=== PATIENT | male | born 1975 | race African-American/Black ===

== ENCOUNTER 2020-03-16 07:42 | Emergency (ER) | payer MEDICAID ==
[~2020-03-16] VITALS: Ht 182.9 cm; Wt 64.0 kg
[2020-03-16 07:45] VITALS: BP 124/70
[2020-03-16] MEDS ORDERED: IBUP-2028 MT (08:47)
== END 2020-03-16 08:52 | disposition home or self-care (01) ==
LOC: ER 07:42
DX: M79.672 Pain in left foot (principal); M79.675 Pain in left toe(s); R03.0 Elevated blood-pressure reading, without diagnosis of hypertension
CPT/HCPCS: 73620; 99283